=== PATIENT | male | born 1930 | race Caucasian/White ===

== ENCOUNTER 2017-06-28 12:49 | Emergency (ER) | payer MEDICARE, OTHER ==
[~2017-06-28] VITALS: Ht 177.8 cm; Wt 105.8 kg
[~2017-06-28 12:49] MED LIST: ASPI-974 PO; CALC-506 PO; DOCU-20 PO; IPRA4AER IH; MAGN400T6 PO; MOME13HF INH; PANT40TA4 PO
[2017-06-28 12:50] VITALS: BP 159/80
[2017-06-28 14:15] LABS: BASOPHILS % (AUTO) 0.5 % (0-1); EOSINOPHILS # (AUTO) 0.7 X10'3 (0-0.9); EOSINOPHILS % (AUTO) 8.6 % (0-6); HEMATOCRIT 38.3 % (42.0-52.0); HEMOGLOBIN 12.7 g/dl (14.0-17.9); LYMPHOCYTES % (AUTO) 11.6 % (21-51); MEAN CORPUSCULAR HEMOGLOBIN 28.7 PG (27.0-31.0); MEAN CORPUSCULAR VOLUME 86.9 FL (78-98); MEAN PLATELET VOLUME 7.8 FL (7.4-10.4); MONOCYTES # (AUTO) 0.6 X10'3 (0-0.9); MONOCYTES % (AUTO) 6.5 % (2-12); NEUTROPHILS # (AUTO) 6.3 X10'3 (1.8-7.7); NEUTROPHILS % (AUTO) 72.8 % (42-75); PLATELET COUNT 193 X10'3 (140-440); RED BLOOD COUNT 4.41 X10'6 (4.70-6.10); RED CELL DISTRIBUTION WIDTH 15.7 % (11.5-14.5); WHITE BLOOD COUNT 8.6 X10'3 (4.5-11.0)
[2017-06-28 14:29] LABS: ALANINE AMINOTRANSFERASE 10 U/L (12-78); ALBUMIN 3.2 G/DL (3.4-5.0); ALKALINE PHOSPHATASE 58 IU/L (46-116); ANION GAP 10 (8-16); ASPARTATE AMINO TRANSFERASE 20 U/L (10-37); BILIRUBIN,TOTAL 0.4 MG/DL (0.1-1.0); BLOOD UREA NITROGEN 21 MG/DL (7-18); BUN/CREATININE RATIO 23.3 (5.4-32.0); CALCIUM 8.2 MG/DL (8.5-10.1); CHLORIDE 106 MMOL/L (99-107); CREATINE KINASE 114 U/L (39-308); GLUCOSE 103 MG/DL (70-104); POTASSIUM 4.1 MMOL/L (3.5-5.1); SODIUM 142 MMOL/L (135-145); TOTAL CARBON DIOXIDE 26.4 MMOL/L (24-32); TOTAL PROTEIN 6.5 G/DL (6.4-8.2); eGFR 80 ML/MIN
[2017-06-28 15:23] LABS: CLARITY,URINE CLEAR (Clear); COLOR,URINE YELLOW (Yellow); GLUCOSE, URINE NEGATIVE (Neg); KETONES,URINE TRACE mg/dl (Neg); LEUKOCYTE ESTERASE ,URINE NEGATIVE (Neg); NITRITES, URINE NEGATIVE (Neg); OCCULT BLOOD,URINE NEGATIVE (Neg); PROTEIN,URINE TRACE mg/dl (Neg)
[2017-06-28 15:26] LABS: UA COLLECTION TYPE NON-SPECIFIED
[2017-06-28 15:34] LABS: BACTERIA,URINE FEW /HPF (Neg); RBC,URINE 0-2 /HPF (0-2); SQUAMOUS EPITHELIAL CELL,UR FEW /LPF (FEW); WBC,URINE 0-4 /HPF (0-4)
== END 2017-06-28 15:23 | disposition home or self-care (01) ==
LOC: ER 12:50
DX: R21 Rash and other nonspecific skin eruption (principal); Z87.891 Personal history of nicotine dependence; Z88.2 Allergy status to sulfonamides; Z79.82 Long term (current) use of aspirin
CPT/HCPCS: 36415; 71046; 80053; 81001; 82550; 84550; 85025; 85651; 99285

== ENCOUNTER 2018-01-24 17:34 | Inpatient (IN) | payer MEDICARE, OTHER ==
[~2018-01-24] VITALS: Ht 177.8 cm; Wt 101.8 kg
[~2018-01-24 17:34] MED LIST changes: +AMOX1TAB15 PO; -ASPI-974 PO; +ASPI81TA52 PO; -DOCU-20 PO; +FLUC100T9 PO
[2018-01-24] MEDS ORDERED: normal saline 1000ML IV soln IV ONE (17:55)
[2018-01-24 18:35] LABS: BASOPHILS % (AUTO) 0.2 % (0-1); EOSINOPHILS # (AUTO) 0.4 X10'3 (0-0.9); HEMATOCRIT 34.5 % (42.0-52.0); HEMOGLOBIN 11.4 g/dl (14.0-17.9); LYMPHOCYTES # (AUTO) 0.7 X10'3 (1.1-4.8); LYMPHOCYTES % (AUTO) 5.3 % (21-51); MEAN PLATELET VOLUME 7.7 FL (7.4-10.4); MONOCYTES % (AUTO) 7.8 % (2-12); NEUTROPHILS # (AUTO) 10.6 X10'3 (1.8-7.7); NEUTROPHILS % (AUTO) 83.7 % (42-75); PLATELET COUNT 325 X10'3 (140-440); RED BLOOD COUNT 3.92 X10'6 (4.70-6.10); RED CELL DISTRIBUTION WIDTH 16.1 % (11.5-14.5); WHITE BLOOD COUNT 12.7 X10'3 (4.5-11.0)
[2018-01-24] MEDS ORDERED: iohexol 300mg/ml 100ml inj. ONE (18:44)
[2018-01-24 18:47] LABS: INR 1.1 INR; PARTIAL THROMBOPLASTIN TIME 31 SECONDS (22-32); PROTHROMBIN TIME 11.1 SECONDS (9.0-12.0)
[2018-01-24 18:49] LABS: ALANINE AMINOTRANSFERASE 15 U/L (12-78); ALBUMIN 2.4 G/DL (3.4-5.0); ALBUMIN/GLOBULIN RATIO 0.6 (1.1-1.5); ALKALINE PHOSPHATASE 76 IU/L (46-116); ANION GAP 12 (8-16); ASPARTATE AMINO TRANSFERASE 22 U/L (10-37); BILIRUBIN,TOTAL 0.5 MG/DL (0.1-1.0); BLOOD UREA NITROGEN 13 MG/DL (7-18); BUN/CREATININE RATIO 13.4 (5.4-32.0); CALCIUM 8.1 MG/DL (8.5-10.1); CHLORIDE 100 MMOL/L (99-107); CREATININE 0.97 MG/DL (0.60-1.10); GLUCOSE 113 MG/DL (70-104); MAGNESIUM 1.7 MG/DL (1.5-2.4); POTASSIUM 3.8 MMOL/L (3.5-5.1); SODIUM 135 MMOL/L (135-145); TOTAL CARBON DIOXIDE 22.7 MMOL/L (24-32); TOTAL PROTEIN 6.2 G/DL (6.4-8.2); eGFR 73 ML/MIN
[2018-01-24] MEDS ORDERED: metroNIDAZOLE-Flagyl 500mg/NS 100 ML IV ONE (20:30)
[2018-01-24] MEDS ORDERED: levoFLOXACIN-Levaquin 750MG/D5 150 ML IV ONE (20:30)
[2018-01-24] MEDS ORDERED: FENTANYL-0.9 % NACL/PF 100 ML IV PRN (20:50)
[2018-01-24] MEDS ORDERED: AMOX1TAB15 PO (21:15)
[2018-01-24] MEDS ORDERED: ASPI81TA52 PO (21:15)
[2018-01-24 21:33] LABS: TOTAL CELLS COUNTED 100
[2018-01-24 21:34] LABS: ANISOCYTOSIS 1+; PLATELET ESTIMATE NORMAL; TOXIC GRANULATION 2+
[2018-01-24] MEDS ORDERED: mag hydrox/Alum hydrox/simeth 30ml oral suspension PO PRN (21:40)
[2018-01-24] MEDS ORDERED: magnesium hydroxide 30ml (MOM) UD suspension PO PRN (21:40)
[2018-01-24] MEDS ORDERED: ondansetron/PF 4mg/2ml inj IV PRN (21:40)
[2018-01-24] MEDS ORDERED: acetaminophen 325mg tablet PO PRN ×2 (21:40)
[2018-01-24] MEDS ORDERED: morphine 2 MG/ML inj. syringe IV PRN (21:40)
[2018-01-24] MEDS ORDERED: ipratropium/albuterol 3ml nebule IH PRN (21:45)
[2018-01-24] MEDS: normal saline 1000ml 1,000 ML IV SCH (22:42)
[2018-01-24 22:50] VITALS: BP 104/62
[2018-01-25] MEDS: metroNIDAZOLE-Flagyl 500mg/NS 100 ML IV SCH ×2 (00:38→07:23)
[2018-01-25 01:13] LABS: CLARITY,URINE CLEAR (Clear); COLOR,URINE YELLOW (Yellow); GLUCOSE, URINE NEGATIVE (Neg); KETONES,URINE NEGATIVE (Neg); LEUKOCYTE ESTERASE ,URINE NEGATIVE (Neg); NITRITES, URINE NEGATIVE (Neg); OCCULT BLOOD,URINE TRACE-INTACT (Neg); PROTEIN,URINE NEGATIVE (Neg); UROBILINOGEN,URINE 0.2 E.U/dL (0.2-1.0)
[2018-01-25 01:18] LABS: UA COLLECTION TYPE CLN CATCH MIDSTREAM
[2018-01-25 01:25] LABS: BACTERIA,URINE 1+ /HPF (Neg); WBC,URINE NONE SEEN /HPF (0-4)
[2018-01-25 01:26] LABS: MUCUS STRANDS NONE SEEN /LPF (Neg); SQUAMOUS EPITHELIAL CELL,UR FEW /LPF (FEW)
[2018-01-25] MEDS: albuterol 2.5 MG/3 ML nebule NEB SCH ×3 (02:00→14:00)
[2018-01-25 06:31] LABS: ANION GAP 8 (8-16); BLOOD UREA NITROGEN 11 MG/DL (7-18); BUN/CREATININE RATIO 13.6 (5.4-32.0); CALCIUM 7.6 MG/DL (8.5-10.1); CHLORIDE 106 MMOL/L (99-107); CREATININE 0.81 MG/DL (0.60-1.10); GLUCOSE 84 MG/DL (70-104); POTASSIUM 3.6 MMOL/L (3.5-5.1); SODIUM 140 MMOL/L (135-145); TOTAL CARBON DIOXIDE 26.2 MMOL/L (24-32); eGFR 90 ML/MIN
[2018-01-25 06:41] LABS: BASOPHILS % (AUTO) 0.4 % (0-1); EOSINOPHILS # (AUTO) 0.4 X10'3 (0-0.9); EOSINOPHILS % (AUTO) 4.1 % (0-6); HEMATOCRIT 30.5 % (42.0-52.0); HEMOGLOBIN 9.9 g/dl (14.0-17.9); LYMPHOCYTES # (AUTO) 0.5 X10'3 (1.1-4.8); LYMPHOCYTES % (AUTO) 4.5 % (21-51); MEAN CORPUSCULAR HEMOGLOBIN 28.8 PG (27.0-31.0); MEAN CORPUSCULAR HGB CONC 32.6 % (33.0-36.5); MEAN CORPUSCULAR VOLUME 88.5 FL (78-98); MEAN PLATELET VOLUME 8.3 FL (7.4-10.4); MONOCYTES % (AUTO) 9.8 % (2-12); NEUTROPHILS # (AUTO) 8.3 X10'3 (1.8-7.7); NEUTROPHILS % (AUTO) 81.2 % (42-75); PLATELET COUNT 265 X10'3 (140-440); RED BLOOD COUNT 3.45 X10'6 (4.70-6.10); RED CELL DISTRIBUTION WIDTH 15.8 % (11.5-14.5); WHITE BLOOD COUNT 10.2 X10'3 (4.5-11.0)
[2018-01-25 07:12] VITALS: BP 113/64
[2018-01-25] MEDS: normal saline 1000ml 1,000 ML IV SCH ×2 (07:39→12:43)
[2018-01-25] MEDS ORDERED: levoFLOXACIN-Levaquin 500mg/D5 100 ML IV SCH (08:00)
[2018-01-25] MEDS ORDERED: budesonide 0.5mg/2ml UD nebule IH SCH (08:00)
[2018-01-25] MEDS ORDERED: non-formulary drug (Mometasone/Formoterol (Dulera 200 Mcg/5 Mcg Inhaler) 2 PUFFS) INH SCH (08:00)
[2018-01-25 10:10] LABS: C DIFF ANTIGEN POSITIVE (NEGATIVE); C DIFF SPECIMEN=DIARRHEA? ACCEPTABLE
[2018-01-25 10:13] LABS: C DIFFICILE TOXINS A&B POSITIVE (Neg)
[2018-01-25 11:00] VITALS: BP 108/68
[2018-01-25 11:40] VITALS: BP 113/64
[2018-01-25] MEDS: vancomycin 125mg/5ml ORAL solution 5ml UD bottle PO SCH ×2 (15:01→20:38)
[2018-01-25] MEDS: metroNIDAZOLE 500mg tablet PO SCH (16:43)
[2018-01-25 20:00] VITALS: BP 106/63
[2018-01-26] VITALS: BP 118/63
[2018-01-26] MEDS: normal saline 1000ml 1,000 ML IV SCH ×3 (00:22→23:39)
[2018-01-26] MEDS: metroNIDAZOLE 500mg tablet PO SCH ×2 (00:22→07:19)
[2018-01-26] MEDS: vancomycin 125mg/5ml ORAL solution 5ml UD bottle PO SCH ×4 (02:25→20:04)
[2018-01-26 06:07] LABS: BASOPHILS % (AUTO) 0.4 % (0-1); EOSINOPHILS # (AUTO) 0.5 X10'3 (0-0.9); EOSINOPHILS % (AUTO) 5.2 % (0-6); HEMATOCRIT 30.1 % (42.0-52.0); HEMOGLOBIN 9.9 g/dl (14.0-17.9); LYMPHOCYTES # (AUTO) 0.4 X10'3 (1.1-4.8); LYMPHOCYTES % (AUTO) 4.4 % (21-51); MEAN CORPUSCULAR HEMOGLOBIN 28.8 PG (27.0-31.0); MEAN CORPUSCULAR HGB CONC 32.8 % (33.0-36.5); MEAN CORPUSCULAR VOLUME 87.8 FL (78-98); MEAN PLATELET VOLUME 7.8 FL (7.4-10.4); MONOCYTES # (AUTO) 0.8 X10'3 (0-0.9); MONOCYTES % (AUTO) 8.5 % (2-12); NEUTROPHILS % (AUTO) 81.5 % (42-75); PLATELET COUNT 269 X10'3 (140-440); RED BLOOD COUNT 3.43 X10'6 (4.70-6.10); RED CELL DISTRIBUTION WIDTH 15.8 % (11.5-14.5); WHITE BLOOD COUNT 9.8 X10'3 (4.5-11.0)
[2018-01-26 06:13] LABS: ALBUMIN 1.9 G/DL (3.4-5.0); ANION GAP 12 (8-16); BLOOD UREA NITROGEN 9 MG/DL (7-18); BUN/CREATININE RATIO 10.6 (5.4-32.0); CALCIUM 7.8 MG/DL (8.5-10.1); CHLORIDE 106 MMOL/L (99-107); CREATININE 0.85 MG/DL (0.60-1.10); GLUCOSE 88 MG/DL (70-104); POTASSIUM 3.2 MMOL/L (3.5-5.1); SODIUM 142 MMOL/L (135-145); TOTAL CARBON DIOXIDE 24.4 MMOL/L (24-32); eGFR 85 ML/MIN
[2018-01-26 08:00] VITALS: BP 115/68
[2018-01-26] MEDS ORDERED: potassium Cl 40MEQ/NS 500ml 500 ML IV PRN ×2 (10:30)
[2018-01-26] MEDS ORDERED: magnesium 4gm in 100ml NS 100 ML IV PRN (10:30)
[2018-01-26] MEDS ORDERED: potassium Cl 20 mEq SR tablet PO PRN (10:30)
[2018-01-26] MEDS ORDERED: magnesium Cl slow-release 64mg tablet PO PRN (10:30)
[2018-01-26] MEDS ORDERED: magnesium 1gm/100ml D5W IVPB 100 ML IV PRN (10:30)
[2018-01-26] MEDS ORDERED: LIDOcaine 1% 30ml vial 5 ML in potassium Cl 40MEQ/NS 500ml 500 ML IV PRN (10:50)
[2018-01-26 11:54] VITALS: BP 110/67
[2018-01-26 20:00] VITALS: BP 105/62
[2018-01-26] MEDS: lactobacillus rhamnosus 10,000 MMU CELLS/CAPSULE PO SCH (20:04)
[2018-01-27] VITALS: BP 113/71
[2018-01-27] MEDS: vancomycin 125mg/5ml ORAL solution 5ml UD bottle PO SCH ×4 (02:07→20:27)
[2018-01-27] MEDS: normal saline 1000ml 1,000 ML IV SCH ×3 (02:07→21:40)
[2018-01-27 05:07] LABS: BASOPHILS % (AUTO) 0.5 % (0-1); EOSINOPHILS # (AUTO) 0.6 X10'3 (0-0.9); EOSINOPHILS % (AUTO) 8.5 % (0-6); HEMATOCRIT 30.4 % (42.0-52.0); HEMOGLOBIN 9.9 g/dl (14.0-17.9); LYMPHOCYTES # (AUTO) 0.4 X10'3 (1.1-4.8); LYMPHOCYTES % (AUTO) 5.8 % (21-51); MEAN CORPUSCULAR HEMOGLOBIN 28.7 PG (27.0-31.0); MEAN CORPUSCULAR HGB CONC 32.5 % (33.0-36.5); MEAN CORPUSCULAR VOLUME 88.3 FL (78-98); MEAN PLATELET VOLUME 7.9 FL (7.4-10.4); MONOCYTES # (AUTO) 0.5 X10'3 (0-0.9); MONOCYTES % (AUTO) 7.3 % (2-12); NEUTROPHILS # (AUTO) 5.5 X10'3 (1.8-7.7); NEUTROPHILS % (AUTO) 77.9 % (42-75); PLATELET COUNT 273 X10'3 (140-440); RED BLOOD COUNT 3.45 X10'6 (4.70-6.10); RED CELL DISTRIBUTION WIDTH 15.8 % (11.5-14.5); WHITE BLOOD COUNT 7.1 X10'3 (4.5-11.0)
[2018-01-27 05:29] LABS: ANION GAP 12 (8-16); BLOOD UREA NITROGEN 7 MG/DL (7-18); BUN/CREATININE RATIO 8.5 (5.4-32.0); CHLORIDE 108 MMOL/L (99-107); CREATININE 0.82 MG/DL (0.60-1.10); GLUCOSE 83 MG/DL (70-104); MAGNESIUM 1.8 MG/DL (1.5-2.4); POTASSIUM 3.2 MMOL/L (3.5-5.1); SODIUM 143 MMOL/L (135-145); TOTAL CARBON DIOXIDE 22.6 MMOL/L (24-32); eGFR 89 ML/MIN
[2018-01-27 07:12] VITALS: BP 123/71
[2018-01-27] MEDS: lactobacillus rhamnosus 10,000 MMU CELLS/CAPSULE PO SCH ×2 (08:09→20:27)
[2018-01-27] MEDS: potassium Cl 20 mEq SR tablet PO PRN ×2 (10:18→16:19)
[2018-01-27 11:15] VITALS: BP 116/70
[2018-01-27] MEDS: chloestyramine/aspartame 4gm packet PO SCH (15:57)
[2018-01-27 19:10] VITALS: BP 131/75
[2018-01-28] VITALS: BP 142/76
[2018-01-28] MEDS: vancomycin 125mg/5ml ORAL solution 5ml UD bottle PO SCH ×4 (02:30→20:22)
[2018-01-28 05:17] LABS: EOSINOPHILS # (AUTO) 0.7 X10'3 (0-0.9); EOSINOPHILS % (AUTO) 13.9 % (0-6); HEMATOCRIT 30.4 % (42.0-52.0); HEMOGLOBIN 9.8 g/dl (14.0-17.9); LYMPHOCYTES # (AUTO) 0.4 X10'3 (1.1-4.8); LYMPHOCYTES % (AUTO) 8.5 % (21-51); MEAN CORPUSCULAR HEMOGLOBIN 28.4 PG (27.0-31.0); MEAN CORPUSCULAR HGB CONC 32.2 % (33.0-36.5); MEAN CORPUSCULAR VOLUME 88.3 FL (78-98); MEAN PLATELET VOLUME 7.8 FL (7.4-10.4); MONOCYTES # (AUTO) 0.4 X10'3 (0-0.9); MONOCYTES % (AUTO) 8.4 % (2-12); NEUTROPHILS # (AUTO) 3.4 X10'3 (1.8-7.7); NEUTROPHILS % (AUTO) 68.2 % (42-75); PLATELET COUNT 281 X10'3 (140-440); RED BLOOD COUNT 3.45 X10'6 (4.70-6.10); RED CELL DISTRIBUTION WIDTH 16.2 % (11.5-14.5)
[2018-01-28 05:25] LABS: ANION GAP 11 (8-16); BLOOD UREA NITROGEN 5 MG/DL (7-18); BUN/CREATININE RATIO 6.7 (5.4-32.0); CHLORIDE 110 MMOL/L (99-107); CREATININE 0.75 MG/DL (0.60-1.10); GLUCOSE 80 MG/DL (70-104); MAGNESIUM 1.6 MG/DL (1.5-2.4); POTASSIUM 3.5 MMOL/L (3.5-5.1); SODIUM 144 MMOL/L (135-145); TOTAL CARBON DIOXIDE 23.2 MMOL/L (24-32); eGFR > 90 ML/MIN
[2018-01-28 07:05] VITALS: BP 126/69
[2018-01-28] MEDS: lactobacillus rhamnosus 10,000 MMU CELLS/CAPSULE PO SCH ×2 (07:37→20:22)
[2018-01-28] MEDS: normal saline 1000ml 1,000 ML IV SCH ×2 (07:38→17:24)
[2018-01-28] MEDS: chloestyramine/aspartame 4gm packet PO SCH (11:11)
[2018-01-28 11:37] VITALS: BP 124/76
[2018-01-28 20:00] VITALS: BP 133/78
[2018-01-29] VITALS: BP 126/79
[2018-01-29] MEDS: normal saline 1000ml 1,000 ML IV SCH (02:17)
[2018-01-29] MEDS: vancomycin 125mg/5ml ORAL solution 5ml UD bottle PO SCH ×2 (02:17→08:33)
[2018-01-29 05:07] LABS: ANION GAP 11 (8-16); BLOOD UREA NITROGEN 5 MG/DL (7-18); CALCIUM 8.2 MG/DL (8.5-10.1); CHLORIDE 111 MMOL/L (99-107); CREATININE 0.83 MG/DL (0.60-1.10); GLUCOSE 84 MG/DL (70-104); MAGNESIUM 1.6 MG/DL (1.5-2.4); POTASSIUM 3.5 MMOL/L (3.5-5.1); SODIUM 146 MMOL/L (135-145); eGFR 88 ML/MIN
[2018-01-29 05:14] LABS: BASOPHILS # (AUTO) 0.1 X10'3 (0-0.2); BASOPHILS % (AUTO) 1.1 % (0-1); EOSINOPHILS # (AUTO) 0.8 X10'3 (0-0.9); EOSINOPHILS % (AUTO) 16.6 % (0-6); HEMATOCRIT 30.2 % (42.0-52.0); HEMOGLOBIN 9.7 g/dl (14.0-17.9); LYMPHOCYTES # (AUTO) 0.5 X10'3 (1.1-4.8); LYMPHOCYTES % (AUTO) 10.3 % (21-51); MEAN CORPUSCULAR HEMOGLOBIN 28.4 PG (27.0-31.0); MEAN CORPUSCULAR VOLUME 88.6 FL (78-98); MEAN PLATELET VOLUME 7.7 FL (7.4-10.4); MONOCYTES # (AUTO) 0.4 X10'3 (0-0.9); MONOCYTES % (AUTO) 8.9 % (2-12); NEUTROPHILS # (AUTO) 2.9 X10'3 (1.8-7.7); NEUTROPHILS % (AUTO) 63.1 % (42-75); PLATELET COUNT 283 X10'3 (140-440); RED BLOOD COUNT 3.41 X10'6 (4.70-6.10); RED CELL DISTRIBUTION WIDTH 16.3 % (11.5-14.5); WHITE BLOOD COUNT 4.7 X10'3 (4.5-11.0)
[2018-01-29 07:00] VITALS: BP 183/80
[2018-01-29] MEDS: lactobacillus rhamnosus 10,000 MMU CELLS/CAPSULE PO SCH (08:33)
[2018-01-29] MEDS: chloestyramine/aspartame 4gm packet PO SCH (11:00)
[2018-01-29] MEDS ORDERED: VANC5VIA PO (11:03)
[2018-01-29] MEDS ORDERED: LACT1CAP26 PO (11:03)
== END 2018-01-29 13:28 | disposition home health service (06) | DRG 372 ==
LOC: ER 17:34 → SUR 3N 21:39 → CMPBEDREQ 01-28 19:23
PROVIDERS: ADMIT Internal Medicine; ATTEND Family Medicine
PROC: BW211ZZ Computerized Tomography (CT Scan) of Abdomen and Pelvis using Low Osmolar Contrast (ICD-10-PCS; principal; 2018-01-24)
DX: A04.72 Enterocolitis due to Clostridium difficile, not specified as recurrent (principal); E44.0 Moderate protein-calorie malnutrition; D62 Acute posthemorrhagic anemia; K57.32 Diverticulitis of large intestine without perforation or abscess without bleeding; K86.3 Pseudocyst of pancreas; E87.6 Hypokalemia; I25.10 Atherosclerotic heart disease of native coronary artery without angina pectoris; C61 Malignant neoplasm of prostate; J45.909 Unspecified asthma, uncomplicated; K21.9 Gastro-esophageal reflux disease without esophagitis; Z95.1 Presence of aortocoronary bypass graft; Z88.2 Allergy status to sulfonamides; Z79.899 Other long term (current) drug therapy; Z79.82 Long term (current) use of aspirin; Z68.32 Body mass index [BMI] 32.0-32.9, adult
CPT/HCPCS: 36415; 71045; 74177; 80048; 80053; 81001; 83605; 83735; 84145; 85025; 85610; 85730; 87040; 87070; 87324; 87449; 93005; 94760; 96361; 96365; 97116; 97161; 97530; 99285; A6212; A6258; J1956; J2270; J3480; J3490; J7030; J7042; J7626; Q9967

== ENCOUNTER 2019-09-05 08:28 | Day surgery (SDC) | payer MEDICARE, OTHER ==
[2019-09-02 12:33] LABS: BASOPHILS % (AUTO) 0.8 % (0-1); EOSINOPHILS # (AUTO) 0.3 X10'3 (0-0.9); EOSINOPHILS % (AUTO) 6.2 % (0-6); LYMPHOCYTES # (AUTO) 0.8 X10'3 (1.1-4.8); LYMPHOCYTES % (AUTO) 17.2 % (21-51); MEAN CORPUSCULAR HEMOGLOBIN 31.1 PG (27.0-31.0); MEAN CORPUSCULAR HGB CONC 32.5 g/dL (33.0-36.5); MEAN CORPUSCULAR VOLUME 95.6 FL (78-98); MEAN PLATELET VOLUME 8.1 FL (7.4-10.4); MONOCYTES # (AUTO) 0.6 X10'3 (0-0.9); MONOCYTES % (AUTO) 11.6 % (2-12); NEUTROPHILS # (AUTO) 3.1 X10'3 (1.8-7.7); NEUTROPHILS % (AUTO) 64.2 % (42-75); PRE OP HEMATOCRIT 40.4 % (42.0-52.0); PRE OP HEMOGLOBIN 13.1 g/dL (14.0-17.9); PRE OP PLATELET COUNT 156 X10'3 (140-440); RED BLOOD COUNT 4.23 X10'6 (4.70-6.10); RED CELL DISTRIBUTION WIDTH 14.7 % (11.5-14.5)
[2019-09-02 12:42] LABS: ALBUMIN 3.4 G/DL (3.4-5.0); ALBUMIN/GLOBULIN RATIO 1.1 (1.1-1.5); ALKALINE PHOSPHATASE 56 IU/L (46-116); BLOOD UREA NITROGEN 18 MG/DL (7-18); BUN/CREATININE RATIO 18.6 (5.4-32.0); CALCIUM 8.9 MG/DL (8.5-10.1); CHLORIDE 106 MMOL/L (99-107); CREATININE 0.97 MG/DL (0.60-1.10); PRE OP ALT 11 U/L (30-65); PRE OP ANION GAP 6 (8-16); PRE OP AST 21 U/L (10-37); PRE OP BILIRUB, TOTAL 0.4 MG/DL (0.0-1.0); PRE OP GLUCOSE 95 MG/DL (70-104); PRE OP POTASSIUM 4.1 MMOL/L (3.4-5.1); PRE OP SODIUM 140 MMOL/L (135-145); TOTAL PROTEIN 6.5 G/DL (6.4-8.2); eGFR 73 ML/MIN
[~2019-09-05] VITALS: Ht 177.8 cm; Wt 96.5 kg
[2019-09-05] VITALS (9 sets, daily range): BP systolic 121–156; BP diastolic 67–93
[~2019-09-05 08:28] MED LIST changes: -AMOX1TAB15 PO; +ASCO500C17 PO; -CALC-506 PO; +DEXAMETHASONE PO; +FLO0.4C PO; -FLUC100T9 PO; -IPRA4AER IH; -MAGN400T6 PO; -MOME13HF INH; -PANT40TA4 PO; +VITAMIN D PO; +ampicillin inj 1 GM in normal saline 100ml IV soln 100 ML IV ONE; +famotidine 20mg tablet PO ONE; +gentamicin inj 160 MG in normal saline 100ml IV soln 100 ML IV ONE; +ringers solution, lacted 1,000 ML IV SCH
[2019-09-05] MEDS ORDERED: sevoflurane 250ml liquid IH ONE (10:38)
[2019-09-05] MEDS ORDERED: propofol inj 20 ML IV ONE ×2 (10:40→11:33)
[2019-09-05] MEDS ORDERED: fentaNYL/PF 50MCG/1 ML 2ML syringe ONE (10:41)
[2019-09-05] MEDS ORDERED: ringers solution, lacted 1,000 ML IV SCH (11:09)
[2019-09-05] MEDS ORDERED: ondansetron/PF 4mg/2ml inj IV PRN ×2 (11:10→11:45)
[2019-09-05] MEDS ORDERED: proCHLORperazine 10 MG/2 ml inj IV PRN (11:10)
[2019-09-05] MEDS ORDERED: morphine 2 MG/ML inj. syringe IV PRN (11:10)
[2019-09-05] MEDS ORDERED: morphine 4 MG/ML inj SYRINge IV PRN (11:10)
[2019-09-05] MEDS ORDERED: meperidine/PF 25mg/ml syringe IV PRN ×3 (11:10)
--- NOTE | 2019-09-05 11:43 | NUR ---
Received from OR via , accompanied by Anesthesiologist DR WHITLOCK and report given by Anesthesiolgist. AWAKENS TO VOICE. VITALS STABLE. SHANEL PAIN. CBI WITH LITE PALE PINK URINE IN THE BAG.
[2019-09-05] MEDS ORDERED: oxybutynin 5mg tablet PO PRN (11:45)
[2019-09-05] MEDS ORDERED: acetaminophen 325mg tablet PO PRN (11:45)
--- NOTE | 2019-09-05 12:38 | NUR ---
Patient in room [facility]. I have received report from Minnie GALLEGOS in Recovery and had the opportunity to ask questions and assume patient care.
--- NOTE | 2019-09-05 12:43 | NUR ---
Report called to receiving nurse. Transferred via [facility] . Special Issues communicated to receiving nurse. AWAKE AND ORIENTED. VITALS STABLE. SHANEL PAIN. TO SURGICAL RM 245B AT THIS TIME.
[2019-09-05] MEDS: potassium cl 20mEq in 1/2 NS 1,000 ML IV SCH ×3 (14:50→23:35)
[2019-09-05] MEDS: HYDROcodone/acetaminophen 5mg/325mg tablet PO PRN ×2 (16:29→21:01)
--- NOTE | 2019-09-05 18:22 | NUR ---
Patient in room [facility]. I have received report from LENNY GALLEGOS and had the opportunity to ask questions and assume patient care.
[2019-09-06 00:34] VITALS: BP 120/68
[2019-09-06] MEDS: HYDROcodone/acetaminophen 5mg/325mg tablet PO PRN ×2 (02:50→07:22)
[2019-09-06 05:02] LABS: BASOPHILS % (AUTO) 0.1 % (0-1); EOSINOPHILS % (AUTO) 0 % (0-6); HEMATOCRIT 38.5 % (42.0-52.0); HEMOGLOBIN 12.5 g/dl (14.0-17.9); LYMPHOCYTES # (AUTO) 0.4 X10'3 (1.1-4.8); MEAN CORPUSCULAR HEMOGLOBIN 30.9 PG (27.0-31.0); MEAN CORPUSCULAR HGB CONC 32.5 g/dL (33.0-36.5); MEAN PLATELET VOLUME 8.1 FL (7.4-10.4); MONOCYTES # (AUTO) 0.3 X10'3 (0-0.9); MONOCYTES % (AUTO) 4.1 % (2-12); NEUTROPHILS # (AUTO) 6.6 X10'3 (1.8-7.7); NEUTROPHILS % (AUTO) 90.8 % (42-75); PLATELET COUNT 144 X10'3 (140-440); RED BLOOD COUNT 4.05 X10'6 (4.70-6.10); RED CELL DISTRIBUTION WIDTH 14.6 % (11.5-14.5); WHITE BLOOD COUNT 7.2 X10'3 (4.5-11.0)
[2019-09-06 05:21] LABS: ALBUMIN 2.9 G/DL (3.4-5.0); ANION GAP 8 (8-16); BLOOD UREA NITROGEN 18 MG/DL (7-18); BUN/CREATININE RATIO 20.5 (5.4-32.0); CALCIUM 8.1 MG/DL (8.5-10.1); CHLORIDE 105 MMOL/L (99-107); CREATININE 0.88 MG/DL (0.60-1.10); GLUCOSE 116 MG/DL (70-104); POTASSIUM 4.3 MMOL/L (3.5-5.1); SODIUM 138 MMOL/L (135-145); TOTAL CARBON DIOXIDE 25.2 MMOL/L (24-32); eGFR 82 ML/MIN
[2019-09-06 07:00] VITALS: BP 152/74
[2019-09-06] MEDS ORDERED: tamsulosin 0.4mg capsule PO SCH (08:00)
[2019-09-06 11:00] VITALS: BP 118/68
[2019-09-06] MEDS ORDERED: HYDR-4383 PO (11:04)
[2019-09-06] MEDS ORDERED: DOCU-148 PO (11:04)
[2019-09-06] MEDS ORDERED: OXYB5TAB16 PO (11:04)
[2019-09-07] MEDS ORDERED: docusate sod 250mg capsule PO SCH (08:00)
== END 2019-09-06 12:55 | disposition home or self-care (01) ==
LOC: PAS 08:28 → SUR 3N 11:44 → PAS 09-06 12:55
PROVIDERS: ATTEND Urology
DX: N32.0 Bladder-neck obstruction (principal); N30.20 Other chronic cystitis without hematuria; J45.909 Unspecified asthma, uncomplicated; K21.9 Gastro-esophageal reflux disease without esophagitis; Z95.1 Presence of aortocoronary bypass graft; Z96.651 Presence of right artificial knee joint; Z98.890 Other specified postprocedural states; Z85.46 Personal history of malignant neoplasm of prostate; Z88.2 Allergy status to sulfonamides; Z79.899 Other long term (current) drug therapy; Z87.440 Personal history of urinary (tract) infections
CPT/HCPCS: 36415; 52640; 80048; 80053; 82948; 85025; 87081; J0290; J1580; J2175; J2270; J2704; J3010; A4346; A4355; A4402; A4618; A6258; G0378; J3480; J7120